=== PATIENT | female | born 1945 | race Caucasian/White ===

== ENCOUNTER → 2017-02-08 | Day surgery (SDC) | payer OTHER ==
[~2017-02-08] MED LIST: ANALAPRIL; LIPITOR20 MG PO
--- NOTE | ~2017-02-08 | OR ---
Unit #: [id number] #: [id number] Patient: RADHA ZAMUDIO [id number] [address] [place], [place] [address] [id number] MR#: [id number] NAME: RADHA ZAMUDIO ROOM: Date of Procedure: 02/08/2017 Admission Date: 02/08/2017 Surgeon: Reyes Osorio Jr., M.D. : 1945 Attending Physician: Reyes Osorio Jr., M.D. PROCEDURE OPERATIVE NOTE INDICATIONS FOR PROCEDURE The patient is a 71-year-old female who desires screening colonoscopy. She has had no previous colonoscopy. She is brought in at this time, at her request, for this procedure. She has had no change in bowel habits. She has had her prep at home and understands the procedure including the risks including that of bleeding and perforation and consents. DIAGNOSIS Desires screening colonoscopy, rule out pathology. POSTOPERATIVE DIAGNOSIS Multiple tiny 1 to 2 mm polyps in the rectum and sigmoid. ANESTHESIA MAC. SURGEON Dr. Reyes Osorio Jr. OPERATION Flexible colonoscopy to the distal ileum with biopsies and multiple polyps in the rectosigmoid area and sigmoid area up to 60 cm. PROCEDURE The patient was positioned in the Chung position with the left side down after being given MAC anesthesia. Digital rectal examination was performed which revealed no palpable masses or tenderness. No blood or stool in the rectal ampulla. The Olympus colonoscope was advanced in the anal canal up to the rectum and retroflexed down to the area of the anorectal region. There was no evidence of any fissures, no significant internal hemorrhoids. The scope was then straightened and advanced up into the rectosigmoid where there were multiple small 1 mm or so polyps. Several of these were biopsied without bleeding and sent to pathology. The scope was then advanced up in the rectosigmoid again with a few small polyps, a couples biopsied. The scope was then advanced up into the sigmoid and proximal sigmoid in the area of the proximal sigmoid at approximately 50 to 60 cm. There was a small 2 to 3 mm polyp and this was biopsied and basically removed with several bites with a cold biopsy forcep. It was sessile. There was no significant bleeding. The scope was then advanced around the splenic flexure and transverse colon, around hepatic flexure and ascending colon, down in the area of the cecum. The Unit #: [id number] #: [id number] Patient: RADHA ZAMUDIO light tip of the scope could be seen transilluminating through the right lower quadrant abdominal wall area. The scope was then advanced up to the distal ileum approximately 10 to 12 inches. There was no evidence of any ileitis or inflammatory bowel disease. The scope was slowly removed. There were no tumors except for the polyps described above. No other polyps, no cancer, no AVMs. No evidence of any colitis, diverticulosis or diverticulitis. The caliber of the colon appeared normal throughout. The scope was removed. The patient tolerated the procedure well and discharged in satisfactory condition. Dictated by... Reyes Osorio Jr., M.Blanca. LISET/shereen TD: 02/08/2017 08:37 JOB #: [id number] PROCEDURE OPERATIVE NOTE Page 1 of 1 X Reyes Osorio MD X PROCEDURE OPERATIVE NOTE
== END | disposition home or self-care (01) ==
LOC: COPS 05:39
PROVIDERS: Surgery
PROC: 0DBP8ZX Excision of Rectum, Via Natural or Artificial Opening Endoscopic, Diagnostic (ICD-10-PCS; principal; 2017-02-08 07:30)
PROC: 0DBN8ZX Excision of Sigmoid Colon, Via Natural or Artificial Opening Endoscopic, Diagnostic (ICD-10-PCS; 2017-02-08 07:30)
DX: Z12.11 Encounter for screening for malignant neoplasm of colon (principal); K62.1 Rectal polyp; K63.5 Polyp of colon; I10 Essential (primary) hypertension; J45.909 Unspecified asthma, uncomplicated; Z79.899 Other long term (current) drug therapy; Z98.890 Other specified postprocedural states; Z90.49 Acquired absence of other specified parts of digestive tract; Z88.8 Allergy status to other drugs, medicaments and biological substances
CPT/HCPCS: 88305; J2250